=== PATIENT | male | born 1980 | race Caucasian/White ===

== ENCOUNTER 2022-08-21 17:51 | Emergency (ER) | payer OTHER, SELFPAY ==
[2022-08-21 18:07] VITALS: BP 146/78; PULSE 78; RESP 16; TEMP 37; O2SAT 96; BMI 28.3
--- NOTE | 2022-08-21 18:19 | ED_ITS ---
HPI - Back Pain/Injury General Chief Complaint: Back Pain/Injury Stated Complaint: back pain Time Seen by Provider: 08/21/22 18:18 Source: patient History of Present Illness HPI Narrative: 42-year-old male nonsmoker without significant chronic medical history presents with a chief complaint of severe back pain that seems to be worsening. He does state he is had back pain off and on for some time and had recently seen his primary care provider who prescribed Motrin and tizanidine. He states that he has been taking it with little to no relief. He denies any trauma or known injury. He is had no fever or chills. He denies the use of blood thinners. He has no numbness or tingling in his lower extremities, he denies any trouble controlling bowel or bladder. Denies lower extremity weakness or footdrop. Related Data Previous Rx's Medication Instructions Recorded gabapentin 300 mg capsule 300 mg PO BEDTIME #14 caps 08/21/22 hydrocodone 5 mg-acetaminophen 325 1 tab PO Q4-6H PRN pain #20 tabs 08/21/22 mg tablet ketorolac 10 mg tablet 10 mg PO Q6H PRN pain #14 tabs 08/21/22 methylprednisolone 4 mg tablets in See Rx Instructions PO .COMPLEX 08/21/22 a dose pack (Medrol (Gil)) #21 ea Allergies Allergy/AdvReac Type Severity Reaction Status Date / Time No Known Drug Allergies Allergy Verified 08/21/22 18:11 Review of Systems Review of Systems Narrative: GENERAL: Denies chills, fatigue, malaise, fever, sweats. HEENT: Denies sinus pain, ear pain, sore throat, difficulty swallowing, dizziness. RESPIRATORY: Denies dyspnea, cough, wheezing, hemoptysis, sputum. CARDIOVASCULAR: Denies chest pain, palpitations, orthopnea, edema, GASTROINTESTINAL: Denies nausea, vomiting, abdominal pain, diarrhea, constipation, melena. : Denies dysuria, frequency, incontinence, hematuria, urinary retention. MUSCULOSKELETAL: See HPI SKIN: Denies rash, skin lesions, or other NEUROLOGIC: See HPI PSYCHIATRIC: No concerning psychosocial issues. 12 point review of systems is negative except for those stated above Patient History Social History Smoking Status: Unknown if ever smoked Smoking Status: Unknown if ever smoked alcohol intake frequency: holidays/special occasions only Substance Use Type: does not use Exam Narrative Exam Narrative: GENERAL: [42] year old patient appears stated age. Well-developed patient, in mild distress. HEAD: Atraumatic. Normocephalic. EYES: Pupils equal round and reactive. Extraocular motions intact. No scleral icterus. No injection or drainage. ENT: Nose without bleeding, purulent drainage. Throat without erythema, tonsillar hypertrophy or exudate. Airway patent. NECK: Trachea midline. Non tender CARDIOVASCULAR: Regular rate and rhythm without murmurs, gallops, or rubs. RESPIRATORY: Clear to auscultation. Breath sounds equal bilaterally. No wheezes, rales, or rhonchi. GASTROINTESTINAL: Abdomen soft, non-tender, nondistended. EXTREMITIES: No edema or joint tenderness. 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 Patient exam notes decreased range of motion and muscle spasm, but no CVA tenderness, or vertebral point tenderness. There are no symptoms of cauda equina such as saddle anesthesia, and decreased reflexes, decreased sensation or strength. NEURO: AOx3. SKIN: No rash or erythema of visible areas Initial Vital Signs Initial Vital Signs: Vital Signs Temperature 98.6 F 08/21/22 18:07 Pulse Rate 78 08/21/22 18:07 Respiratory Rate 16 08/21/22 18:07 Blood Pressure 146/78 H 08/21/22 18:07 Pulse Oximetry 96 08/21/22 18:07 Oxygen Delivery Method Room Air 08/21/22 18:07 Course Orders Ordered: Discontinued Medications Diazepam (Diazepam 5 Mg Tablet) 5 mg PO NOW ONE Stop: 08/21/22 18:30 Last Admin: 08/21/22 19:15 Dose: 5 mg Documented By: YOLANDA Ketorolac Tromethamine (Ketorolac 30 Mg/Ml Vial) 30 mg IM NOW ONE Stop: 08/21/22 18:30 Last Admin: 08/21/22 19:15 Dose: 30 mg Documented By: YOLANDA Lidocaine (Lidocaine Patch 1 Each Adh..Patch) 1 each TOP NOW ONE Stop: 08/21/22 18:30 Last Admin: 08/21/22 18:47 Dose: Not Given Documented By: BADLO Vital Signs Vital signs: Vital Signs - 8 hr 08/21/22 18:07 Temperature 98.6 F Pulse Rate 78 Respiratory Rate 16 Blood Pressure 146/78 H Pulse Oximetry 96 Oxygen Delivery Method Room Air MDM - Back Pain/Injury MDM Narrative Medical decision making narrative: [42] year old patient presents with back pain Multiple etiologies for patient's symptoms considered including, but not limited to: Epidural abscess, cauda equina, mass occupying lesion, and other considered No prior charts available on our EMR Primary Historian: patient Imaging reviewed: Lumbar MRI with foraminal stenosis, no evidence of cauda equina, abscess or hematoma Patient's symptoms improved over duration of stay with above-stated therapies. No evidence of neurosurgical emergency, reassuring history, physical, response to therapies and MRI. 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 [ x] New medication prescriptions sent to your pharmacy: [[facility] ] [ ] New medication written as a paper prescription [ ] No new medications given *Please follow up with your primary care provider in 2-3 days, call for an appointment. Let them know you were seen in the Emergency Department and that we ask that you be seen in follow up. We will electronically transmit a record of today's note if your PCP is in our system *If you do not have a primary care provider please contact the [facility] Resource line at [phone]. They will ask some questions about your medical history and help get you set up with a doctor in the community. *Return to Emergency Department if you should have any new, worsening or concerning symptoms, such as [fever greater than 101 F, shaking chills, worsening pain, persistent vomiting or other bothersome symptoms] You have been prescribed a short course of narcotic medications. These are potentially dangerous and addictive medications that should be used carefully. While on these medications you cannot drive or operate heavy machinery. Add itionally, you cannot sign legal documents or perform any duties such as this. 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 Please understand that we cannot provide further refills of narcotics or controlled substances through the ED and your pain management will need to be through your Primary Care Provider Prescriptions: New hydrocodone-acetaminophen 5-325 mg tablet 1 tab PO Q4-6H PRN (Reason: pain) Qty: 20 0RF ketorolac 10 mg tablet 10 mg PO Q6H PRN (Reason: pain) Qty: 14 0RF gabapentin 300 mg capsule 300 mg PO BEDTIME Qty: 14 0RF methylprednisolone [Medrol (Gil)] 4 mg tablets,dose pack See Rx Instructions .ROUTE .COMPLEX Qty: 21 0RF Rx Instructions: orally per package directions Referrals: Dexter Troy DO [Physician] - Yolie Stallings DO [Primary Care Provider] - Tripp Vargas MD [Physician] - Stand Alone Forms: Patient Portal/API
--- NOTE | 2022-08-21 18:29 | DI.MRI.S_ITS ---
PROCEDURE: MR LUMBAR SPINE WO CON INDICATIONS: Severe Left Lower back pain, weak leg, trouble BM TECHNIQUE: Noncontrast sagittal T1 spin echo and T2 fast echo, sagittal STIR, and T2 fast spin echo through the lumbar spine. In cases with scoliosis, additional coronal T2 fast spin echo may be performed. COMPARISON: None. FINDINGS: Image quality: Excellent. Alignment and Curvature: There is normal bony alignment. Bone Marrow: Marrow is of normal overall signal. No acute vertebral body compression fractures. Spinal Cord: Conus medullaris terminates at the L1 level. Visualized cord demonstrates normal signal and size. Paraspinous Soft Tissues: No paravertebral masses. T12-L1: No significant disc bulge. The foramina and central canal are patent. L1-L2: No significant disc bulge. The foramina and central canal are patent. L2-L3: No significant disc bulge. The foramina and central canal are patent. L3-L4: No significant disc bulge. The foramina and central canal are patent. L4-L5: Disc is desiccated with mild narrowing and a diffuse bulge. Small left foraminal protrusion causes mild to moderate left foraminal stenosis. The right foramen is patent. The central canal is patent. L5-S1: Mild diffuse disc bulge. No foraminal or central canal stenosis. IMPRESSION: 1. Degenerative disc disease of L4-5 with a small left foraminal protrusion causing mild to moderate left foraminal stenosis. 2. No central canal stenosis. Dictated by: Matthias Morales M.D. on 08/21/2022 at 18:57 Approved by: Matthias Morales M.D. on 08/21/2022 at 19:01
[2022-08-21] MEDS: diazePAM 5 MG TABLET PO (19:15)
[2022-08-21] MEDS: KETOROLAC 30 MG/ML VIAL IM (19:15)
[2022-08-21 19:37] VITALS: BP 142/76; PULSE 72; RESP 19; O2SAT 98
== END 2022-08-21 19:38 | disposition home or self-care (01) ==
PROVIDERS: Emergency Provider Emergency Medicine
DX: M99.79 Connective tissue and disc stenosis of intervertebral foramina of abdomen and other regions (principal)
CPT/HCPCS: 72148; 96372; 99283; J1885

== ENCOUNTER 2023-05-17 14:10 | Emergency (ER) | payer OTHER, SELFPAY ==
[2023-05-17 14:20] VITALS: BP 138/96; PULSE 82; TEMP 36.7; O2SAT 96; BMI 28.8
--- NOTE | 2023-05-17 14:57 | ED_ITS ---
HPI - URI/Sore Throat General Chief Complaint: Upper Respiratory Symptoms Stated Complaint: per pt viral infection Time Seen by Provider: 05/17/23 14:57 Source: patient Mode of arrival: Ambulatory History of Present Illness HPI Narrative: This is a 43-year-old male presents to the emergency department due to myalgia, fatigue, productive cough, nausea, 1 episode of vomiting, fevers, sinus congestion for the last 3 days. Reports tactile fevers. Has gotten the flu shot. Reports sore throat. Denies difficulty breathing or swallowing. Related Data Previous Rx's Medication Instructions Recorded gabapentin 300 mg capsule 300 mg PO BEDTIME #14 caps 08/21/22 hydrocodone 5 mg-acetaminophen 325 1 tab PO Q4-6H PRN pain #20 tabs 08/21/22 mg tablet ketorolac 10 mg tablet 10 mg PO Q6H PRN pain #14 tabs 08/21/22 methylprednisolone 4 mg tablets in See Rx Instructions PO .COMPLEX 08/21/22 a dose pack (Medrol (Gil)) #21 ea Allergies Allergy/AdvReac Type Severity Reaction Status Date / Time No Known Drug Allergies Allergy Verified 05/17/23 14:30 Review of Systems Review of Systems Narrative: GENERAL: Reports fatigue, tactile fevers, myalgia Denies chills, , malaise, , sweats. HEENT: Reports sinus congestion and sore throat Denies , ear pain,t, difficulty swallowing, dizziness. RESPIRATORY: Denies dyspnea, cough, wheezing, hemoptysis, sputum. CARDIOVASCULAR: Denies chest pain, palpitations, orthopnea, edema, GASTROINTESTINAL: Reports nausea, vomiting, denies abdominal pain, diarrhea, constipation, melena. : Denies dysuria, frequency, incontinence, hematuria, urinary retention. MUSCULOSKELETAL: denies weakness, joint pain, or bony pain SKIN: Denies rash, skin lesions, or other NEUROLOGIC: Denies weakness, headache, numbness, change in speech, confusion, seizures, incoordination. PSYCHIATRIC: No concerning psychosocial issues. 12 point review of systems is negative except for those stated above Patient History Social History Smoking Status: Unknown if ever smoked Smoking Status: Unknown if ever smoked alcohol intake frequency: holidays/special occasions only Substance Use Type: does not use Exam Narrative Exam Narrative: GENERAL: Well-developed patient, in mild distress. HEAD: Atraumatic. Normocephalic. EYES: Pupils equal round and reactive. Extraocular motions intact. No scleral icterus. No injection or drainage. ENT: Nose without bleeding, purulent drainage. Throat without erythema, tonsillar hypertrophy or exudate. Airway patent. NECK: Trachea midline. Non tender CARDIOVASCULAR: Regular rate and rhythm without murmurs, gallops, or rubs. RESPIRATORY: Clear to auscultation. Breath sounds equal bilaterally. No wheezes, rales, or rhonchi. GASTROINTESTINAL: Abdomen soft, non-tender, nondistended. EXTREMITIES: No edema or joint tenderness. BACK: Nontender without deformity or crepitance. No flank tenderness. NEURO: AOx3. SKIN: No rash or erythema of visible areas Initial Vital Signs Initial Vital Signs: Vital Signs Temperature 98.1 F 05/17/23 14:20 Pulse Rate 82 05/17/23 14:20 Blood Pressure 138/96 H 05/17/23 14:20 Pulse Oximetry 96 05/17/23 14:20 Oxygen Delivery Method Room Air 05/17/23 14:20 Course Orders Ordered: ED Orders 05/17/23 15:05 CXR [XR chest 2V] Stat 05/17/23 15:07 Respiratory Panel (Film Array) Stat Strep Grp A by PCR Rapid Stat 05/17/23 17:06 Monotest Stat Vital Signs Vital signs: Vital Signs - 8 hr 05/17/23 14:20 05/17/23 16:45 Temperature 98.1 F 98.2 F Pulse Rate 82 83 Blood Pressure 138/96 H 138/88 Pulse Oximetry 96 97 Oxygen Delivery Method Room Air Room Air MDM - URI/Sore Throat Lab Data Labs: Lab Results 05/17/23 05/17/23 Range/Units 15:07 17:06 Chlamy pneumoniae PCR Not detected (Not Detect) Adenovirus (PCR) Not detected (Not Detect) B.parapertussis DNA PCR Not detected (Not Detecte) Coronavirus OC43 (PCR) Not detected (Not Detect) Coronavirus HKU1 (PCR) Not detected (Not Detect) Coronavirus 229E (PCR) Not detected (Not Detect) SARS-CoV-2 (PCR) Not detected (Not Detecte) Coronavirus NL63 (PCR) Not detected (Not Detect) Monoscreen Negative (Negative) Human Metapneumovir PCR Not detected (Not Detect) Influenza Type A (PCR) Not detected (Not Detect) Influenza Type B (PCR) Not detected (Not Detect) M. pneumoniae (PCR) Not detected (Not Detect) Parainfluenza 1 (PCR) Not detected (Not Detect) Parainfluenza 2 (PCR) Not detected (Not Detect) Parainfluenza 3 (PCR) Not detected (Not Detect) Parainfluenza 4 (PCR) Not detected (Not Detect) RSV (PCR) Not detected (Not Detect) Entero/Rhino (PCR) Not detected (Not Detect) Group A Strep (PCR) Negative (Negative) Imaging Data Chest x-ray: Radiologist's Impression: [address] [address] XRay Report Signed Patient: Harinder Alcantar MR#: [id number] : 1980 Acct:[id number] Age/Sex: 43 / M Date of Service: 05/17/23 Loc: ED Accession Number: [id number] Procedure: XR chest 2V Ordering Provider: Isac Rice P.A-C PROCEDURE: XR CHEST 2V INDICATIONS: CP/SOB TECHNIQUE: 2 views of the chest were acquired. COMPARISON: None. FINDINGS: Surgical changes and devices: None. Lungs and pleura: Low lung volumes. No dense consolidation or pleural effusion. Mediastinum: Normal heart size Bones and chest wall: Unremarkable IMPRESSION: Low lung volumes. No airspace consolidation. No pleural effusions. Dictated by: August Wilson M.D. on 05/17/2023 at 15:46 Approved by: August Wilson M.D. on 05/17/2023 at 15:46 MDM Narrative Medical decision making narrative: MDM * differential diagnosis includes but not limited to viral URI, bacterial sinusitis, viral sinusitis, pneumonia, COVID, influenza * Prior records reviewed: Patient was last seen here 8 months ago due to back pain. Lumbar MRI unremarkable. * My lab interpretation: Rapid strep negative * My imgaing interpretation: Chest x-ray showed no evidence of any pneumonia or other lung abnormality. * Clinical Decision Rules/Scores evaluated: None * Independent discussions with: None ED Course: This is a 43-year-old male presents to the emergency department due to URI symptoms for the last 3 days. Chest x-ray, rapid strep, respiratory panel negative. [place] testing was also negative. Recommended supportive care for suspected viral illness. Vitals reassuring. Shared Decision Making: Discussed plan with the patient who is comfortable with the plan Social Considerations: None Disposition: Discharged to home Discharge Plan Departure Patient Disposition: Home Clinical Impression: Viral infection Activity Restrictions/Additional Instructions: Thank you for coming to the [facility] Emergency Department today. As we discussed your strep testing was negative. Your chest x-ray is negative for pneumonia. Your respiratory panel was also negative for influenza, COVID. I suspect that your symptoms are viral in nature and should improve over the next week or so with rest, fluids, DayQuil, NyQuil. I will call you to inform you of the mono results when they are available. I hope you feel better soon. Please follow up with your primary care provider within a week if your symptoms continue. If you do not have a primary care provider please contact the [facility] Resource line at [phone]. They will ask some questions about your medical history and help you get set up with a provider in the community. Prescriptions: No Action hydrocodone-acetaminophen 5-325 mg tablet 1 tab PO Q4-6H PRN (Reason: pain) Qty: 20 0RF ketorolac 10 mg tablet 10 mg PO Q6H PRN (Reason: pain) Qty: 14 0RF gabapentin 300 mg capsule 300 mg PO BEDTIME Qty: 14 0RF methylprednisolone [Medrol (Gil)] 4 mg tablets,dose pack See Rx Instructions .ROUTE .COMPLEX Qty: 21 0RF Rx Instructions: orally per package directions Referrals: Yolie Stallings DO [Primary Care Provider] - Stand Alone Forms: Patient Portal/API
--- NOTE | 2023-05-17 15:05 | DI.RAD.S_ITS ---
PROCEDURE: XR CHEST 2V INDICATIONS: CP/SOB TECHNIQUE: 2 views of the chest were acquired. COMPARISON: None. FINDINGS: Surgical changes and devices: None. Lungs and pleura: Low lung volumes. No dense consolidation or pleural effusion. Mediastinum: Normal heart size Bones and chest wall: Unremarkable IMPRESSION: Low lung volumes. No airspace consolidation. No pleural effusions. Dictated by: August Wilson M.D. on 05/17/2023 at 15:46 Approved by: August Wilson M.D. on 05/17/2023 at 15:46
[2023-05-17 16:04] LABS: Strep Grp A by PCR Rapid Negative (Negative)
[2023-05-17 16:45] VITALS: BP 138/88; PULSE 83; TEMP 36.8; O2SAT 97
[2023-05-17 16:49] LABS: Adenovirus Not Detected (Not Detect); B. parapertussis Not Detected (Not Detecte); Bordetella pertussis Not Detected (Not Detect); Chlamydophila pneumoniae Not Detected (Not Detect); Coronavirus 229E Not Detected (Not Detect); Coronavirus HKU1 Not Detected (Not Detect); Coronavirus NL 63 Not Detected (Not Detect); Coronavirus OC43 Not Detected (Not Detect); Human Metapneumovirus Not Detected (Not Detect); Human Rhinovirus/Enterovirus Not Detected (Not Detect); Influenza A Not Detected (Not Detect); Influenza B Not Detected (Not Detect); Mycoplasma pneumoniae Not Detected (Not Detect); Parainfluenza Virus 1 Not Detected (Not Detect); Parainfluenza Virus 2 Not Detected (Not Detect); Parainfluenza Virus 3 Not Detected (Not Detect); Parainfluenza Virus 4 Not Detected (Not Detect); Respiratory Syncytial Virus Not Detected (Not Detect); SARS- CoV-2 Not Detected (Not Detecte)
[2023-05-17 17:20] LABS: Monotest Negative (Negative)
== END 2023-05-17 17:17 | disposition home or self-care (01) ==
PROVIDERS: Emergency Provider Physician Assistant Medical
DX: B34.9 Viral infection, unspecified (principal); R07.9 Chest pain, unspecified; R06.02 Shortness of breath; R11.2 Nausea with vomiting, unspecified; Z20.822 Contact with and (suspected) exposure to COVID-19
CPT/HCPCS: 71046; 86318; 87633; 87651; 99283